=== PATIENT | female | born 1980 | race Caucasian/White ===

== ENCOUNTER 2017-02-17 11:04 | Emergency (ER) | payer MEDICAID, OTHER ==
[~2017-02-17] VITALS: Ht 157.5 cm; Wt 70.8 kg
[2017-02-17 11:10] VITALS: Ht 157.5 cm; Wt 70.8 kg
[2017-02-17] MEDS ORDERED: KETOROLAC 60 MG INJ IM STA (11:37)
[2017-02-17] MEDS ORDERED: NAPR-260 PO (11:44)
--- NOTE | 2017-02-17 12:06 | ERD ---
ER Documentation Chief Complaint Chief Complaint BACK PAIN SINCE YESTERDYA HPI Patient is a 36-year-old female who presents to the ED with low back pain 2 days. 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 This has occurred to her in the past and occurred quite often 8 years ago however it resolved on its own. She denies any falls or trauma. Denies bowel or bladder incontinence or saddle anesthesia. Denies weakness or difficulty walking. Pain when she gets up from a seated position and turning. Denies numbness or tingling. Denies headache or dizziness. Denies abdominal pain, nausea, vomiting or diarrhea. Denies dysuria urgency, back pain. States that she took a ibuprofen yesterday which did not help. She has not taken any medication today. No other complaints. ROS All systems reviewed and are negative except as per history of present illness. Medications Home Meds Active Scripts Naproxen* (Naprosyn*) 500 Mg Tablet, 500 MG PO BID Y for PAIN AND/OR INFLAMMATION, #30 TAB Prov:ROCIO ECHEVERRIA PA-C 02/17/17 Allergies Allergies: Coded Allergies: No Known Allergies (Verified Allergy, Mild, 02/17/17) PMhx/Soc Medical and Surgical Hx: pt denies Medical Hx History of Surgery: Yes ( 02/08/2010) Anesthesia Reaction: No Hx Neurological Disorder: No Hx Respiratory Disorders: No Hx Cardiac Disorders: No Hx Psychiatric Problems: No Hx Miscellaneous Medical Probl: No Hx Alcohol Use: No Hx Substance Use: No Hx Tobacco Use: No FmHx Family History: No coronary disease, No diabetes, No other Physical Exam Vitals Vital Signs Date Time Temp Pulse Resp B/P Pulse Ox O2 Delivery O2 Flow Rate FiO2 02/17/17 11:10 98.1 78 20 130/78 99 Physical Exam GENERAL: Well-developed, well-nourished female. Appears in no acute distress. HEAD: Normocephalic, atraumatic. EYES: Pupils are equally reactive bilaterally. EOMs grossly intact. No conjunctival erythema. ENT: Moist mucous membranes. No uvula deviation. No kissing tonsils. No exudates. NECK: Supple. No lymphadenopathy or thyromegaly. No meningismus. negative kernig. negative brudinski. LUNG: Clear to auscultation bilaterally. No rhonchi, wheezing, rales or coarse breath sounds. HEART: Regular rate and rhythm. No murmurs, rubs or gallops. ABDOMEN: No scars, ecchymosis or rashes noted. Soft, nontender, and nondistended. Positive bowel sounds in all four quadrants. No rebound tenderness , no guarding. (-) McBurneys point tenderness. No CVA tenderness. BACK: No midline tenderness. Spinal or paraspinal tenderness. Negative straight leg test. Extremities: Equal pulses bilaterally. No peripheral clubbing, cyanosis or edema. No unilateral leg swelling. NEUROLOGIC: Alert and oriented. Moving all four extremities. 5/5 strength in all extremities. Normal speech. Steady gait. SKIN: Normal color. Warm and dry. No rashes or lesions. Capillary refill < 2 seconds Results 24 hrs Current Medications Medications (Trade) Dose Ordered Sig/Tavon Route PRN Reason Start Time Stop Time Status Last Admin Dose Admin Ketorolac Tromethamine (Toradol) 30 mg ONCE STAT IM 02/17/17 11:37 02/17/17 11:39 DC 02/17/17 11:50 Procedures/MDM ER COURSE: I kept the patient and/or family informed of laboratory and diagnostic imaging results throughout the emergency room course. MEDICAL DECISION MAKING: This is a 36-year-old female who presents with low back pain 2 days. Vital signs were reviewed. Patient is afebrile. Patient is not hypoxic. Is not toxic or ill-appearing. Patient likely has muscle strain versus sprain versus spasm. No x-rays warranted at this time. Patient is breast-feeding. Patient was given 30 mg IM Toradol in the ED, tolerated well with no adverse reaction. Low suspicion for cauda equine syndrome, spinal epidural hematoma, spinal epidural abscess, osteomyelitis, fracture, aortic dissection, AAA, pyelonephritis, nephrolithiasis, septic stone, obstructed stone. DISCHARGE: At this time, patient is stable for discharge and outpatient management with no new complaints during the ER course. Patient was sent home with person, and advised to use heating pads to area and no heavy lifting. Patient will be discharged home with instructions to recheck for new or worsening symptoms such as fever, nausea, weakness, LOC and to follow up with primary care in the next 1 -2 days. Patient was advised to return to the ER for any new or worsening symptoms. Plan was discussed and patient and/or family understands and agrees. Home instructions were given. Departure Diagnosis: Primary Impression: Back pain Back pain location: low back pain Chronicity: acute Back pain laterality: bilateral Sciatica presence: without sciatica Qualified Code: M54.5 - Acute bilateral low back pain without sciatica Condition: Stable Patient Instructions: Back Pain (Acute Or Chronic) Referrals: MADELIN CASTANO (PCP) Additional Instructions: Call your primary care doctor TOMORROW for an appointment during the next 1-2 days.See the doctor sooner or return here if your condition worsens before your appointment time. ROCIO ECHEVERRIA PA-C Feb 17, 2017 12:06
== END 2017-02-17 12:26 | disposition home or self-care (01) ==
LOC: FTE 11:04
DX: M54.5 Low back pain (principal)
CPT/HCPCS: 96372; J1885; Z7502

== ENCOUNTER 2017-09-10 21:39 | Emergency (ER) | END 2017-09-11 01:33 | disposition home or self-care (01) ==

== ENCOUNTER 2018-08-22 21:44 | Emergency (ER) | payer OTHER ==
[~2018-08-22] VITALS: Ht 162.6 cm; Wt 69.0 kg
[~2018-08-22 21:44] MED LIST: NAPR-985 PO
[2018-08-22 21:48] VITALS: Ht 162.6 cm; Wt 69.0 kg
[2018-08-22] MEDS ORDERED: KETOROLAC 60 MG INJ IM STA (23:41)
[2018-08-22] MEDS ORDERED: NAPR-985 PO (23:45)
[2018-08-22] MEDS ORDERED: MED4DP PO (23:45)
[2018-08-22] MEDS ORDERED: CYCL10TA7 PO (23:45)
[2018-08-22] MEDS ORDERED: HYDR-4011 PO (23:45)
[2018-08-23] MEDS ORDERED: DEXAMETHASONE 10 MG/ML 1 ML INJ IM ONE (01:30)
[2018-08-23] MEDS ORDERED: DIAZEPAM 5 MG TAB PO ONE (01:30)
--- NOTE | 2018-08-23 01:42 | ERD ---
ER Documentation Chief Complaint Chief Complaint NECK PAIN RADIATING UP BACK OF HEAD X'S 1 WEEK HPI 37-year-old female presenting with neck pain x1 week. Patient states that it hurts worse with movement. 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 She also has a young child at home and she is constantly bending over. Denies any numbness or tingling. Denies any arm pain or numbness. Has not taken medications for pain. Denies other medical problems. NKDA. Surgical history denies. Up-to-date on vaccinations ROS All systems reviewed and are negative except as per history of present illness. Medications Home Meds Active Scripts Methylprednisolone* (Medrol* DOSE PACK) 4 Mg/Dose-Pack Tab.ds.pk, 4 MG PO . DIRECTED, #1 PACKET Prov:AVERY JUNIOR PA-C 08/22/18 Naproxen* (Naprosyn*) 500 Mg Tablet, 500 MG PO BID PRN for PAIN AND/OR INF LAMMATION, #30 TAB Prov:AVERY JUNIOR PA-C 08/22/18 Cyclobenzaprine Hcl* (Cyclobenzaprine Hcl*) 10 Mg Tablet, 10 MG PO TID, #15 TAB Prov:AVERY JUNIOR PA-C 08/22/18 Hydrocodone/Acetaminophen ([place] 5-325 Tablet) 1 Each Tablet, 1 TAB PO Q6H PRN for PAIN, #7 TAB Prov:AVERY JUNIOR PA-C 08/22/18 Naproxen* (Naprosyn*) 500 Mg Tablet, 500 MG PO BID PRN for PAIN AND/OR INFLAMMATION, #30 TAB Prov:ROCIO ECHEVERRIA PA-C 02/17/17 Allergies Allergies: Coded Allergies: No Known Allergies (Verified Allergy, Mild, 02/17/17) PMhx/Soc History of Surgery: Yes ( 02/08/2010) Anesthesia Reaction: No Hx Neurological Disorder: No Hx Respiratory Disorders: No Hx Cardiac Disorders: No Hx Psychiatric Problems: No Hx Miscellaneous Medical Probl: No Hx Alcohol Use: No Hx Substance Use: No Hx Tobacco Use: No Smoking Status: Never smoker FmHx Family History: No diabetes, No coronary disease, No other Physical Exam Vitals Vital Signs Date Temp Pulse Resp B/P (MAP) Pulse Ox O2 O2 Flow FiO2 Time Delivery Rate 08/22/18 96.8 74 18 122/77 97 21:48 (92) Physical Exam GENERAL: The patient is well-appearing, well-nourished, in no acute distress HEENT: Atraumatic. Conjunctivae are pink. Pupils equal, round, and reactive to light. There is no scleral icterus. Tympanic membranes clear bilaterally. Oropharynx clear. NECK: C-spine is soft and supple. There is no meningismus. There is no cervical lymphadenopathy. To palpation down paraspinous muscles. CHEST: Clear to auscultation bilaterally. There are no rales, wheezes or rhonchi. HEART: Regular rate and rhythm. No murmurs, clicks, rubs or gallops. NEUROLOGIC: Alert and oriented. Cranial nerves II through XII intact. Motor strength in all 4 extremities with 5 out of 5 strength. Sensation grossly intact. Normal speech and gait. Babinski negative. DTR 2+ throughout. Results 24 hrs Laboratory Tests Test 08/23/18 00:15 POC Beta HCG, Qualitative NEGATIVE Current Medications Medications Dose Sig/Tavon Start Time Status Last (Trade) Ordered Route PRN Stop Time Admin Dose Reason Admin Ketorolac 60 mg ONCE STAT 08/22/18 DC 08/23/18 Tromethamine IM 23:41 00:28 (Toradol) 08/22/18 23:42 Diazepam 5 mg ONCE ONCE 08/23/18 DC 08/23/18 (Valium) PO 01:30 01:22 08/23/18 01:31 10 mg ONCE ONCE 08/23/18 DC 08/23/18 Dexamethasone IM 01:30 01:22 (Decadron) 08/23/18 01:31 Procedures/MDM ER course: Toradol Valium and Decadron given in ED. Patient is not driving home. MDM: 37-year-old female presenting with neck pain. I have low suspicion for acute fracture dislocation. I have low suspicion for tendon or ligament ru pture. Patient is discharged with strict ER precautions and told to follow-up with primary care within 1 to 2 days for close evaluation. Patient is told symptoms change or worsen to return immediately to the ER. All questions answered at discharge Departure Diagnosis: Primary Impression: Neck pain Condition: Stable Patient Instructions: Neck Pain, No Trauma Referrals: [facility] YOU HAVE RECEIVED A MEDICAL SCREENING EXAM AND THE RESULTS INDICATE THAT YOU DO NOT HAVE A CONDITION THAT REQUIRES URGENT TREATMENT IN THE EMERGENCY DEPARTMENT. FURTHER EVALUATION AND TREATMENT OF YOUR CONDITION CAN WAIT UNTIL YOU ARE SEEN IN YOUR DOCTORS OFFICE WITHIN THE NEXT 1-2 DAYS. IT IS YOUR RESPONSIBILITY TO MAKE AN APPOINTMENT FOR FOLOW-UP CARE. IF YOU HAVE A PRIMARY DOCTOR --you should call your primary doctor and schedule an appointment IF YOU DO NOT HAVE A PRIMARY DOCTOR YOU CAN CALL OUR PHYSICIAN REFERRAL HOTLINE AT IF YOU CAN NOT AFFORD TO SEE A PHYSICIAN YOU CAN CHOSE FROM THE FOLLOWING [facility] [address] [facility]. [facility] [address] [employer] [facility] [address] [facility] [facility] [address] [facility]. [facility] [address] [facility]. [facility] [address] Additional Instructions: FOLLOW UP WITH YOUR PRIMARY CARE PHYSICIAN TOMORROW.Return to this facility if you are not improving as expected. AVERY JUNIOR PA-C August 23, 2018 01:42
[2018-08-23 01:47] VITALS: BP 112/76; PULSE 65; RESP 18
== END 2018-08-23 01:50 | disposition home or self-care (01) ==
LOC: FTE 21:44
DX: M54.2 Cervicalgia (principal)
CPT/HCPCS: 81025; 96372; J1100; J1885; Z7502; Z7610